=== PATIENT | female | born 1995 | race Caucasian/White ===

== ENCOUNTER 2016-12-09 19:01 | Emergency (ER) | payer SELFPAY ==
[2016-12-09 19:16] VITALS: TEMP 98.2
[2016-12-09] MEDS ORDERED: LACTATED RINGERS 1,000 ML IVS ONE (19:26)
[2016-12-09] MEDS ORDERED: ONDANSETRON INJ 4 MG/2 ML VIAL IV ONE (19:40)
--- NOTE | 2016-12-09 19:54 | ED.PDOC ---
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 Timing/Duration: other - 48 hours Severity: moderate Improving Factors: nothing Worsening Factors: eating Associated Symptoms: other - see HPI Allergies/Adverse Reactions: Allergies NO KNOWN ALLERGY Allergy (Unverified 01/11/12 23:20) Home Medications: Ambulatory Orders NK [NK] 05/12/14 Review of Systems - Review of Systems Gastrointestinal/Abdominal: States: see HPI All other Systems: Reviewed and Negative, No Change from Baseline Past Medical History (General) - Patient Medical History Hx Seizures: No Hx Stroke: No Hx Dementia: No Hx Asthma: No Hx of COPD: No Hx Cardiac Disorders: No Hx Congestive Heart Failure: No Hx Pacemaker: No Hx Hypertension: No Hx Thyroid Disease: No Hx Diabetes: No Hx Gastroesophageal Reflux: No Hx Renal Disease: No Hx Cancer: No Hx of HIV: No Hx Hepatitis C: No Hx MRSA: No Surgical History: tonsillectomy, other - Vaccination History Hx Tetanus, Diphtheria Vaccination: Yes Hx Influenza Vaccination: No Hx Pneumococcal Vaccination: No Immunizations Up to Date: Yes - Social History Hx Tobacco Use: Yes Hx Alcohol Use: No - Female History Patient is a Female of Child Bearing Age (10 -59 yrs old): Yes Patient : No Family Medical History - Family History Mother Family History: Unknown Hx Family Asthma: Yes - copd-mom Hx Family Stroke: Yes Hx Family Diabetes: Yes Hx Family Cancer: Yes Physical Exam - Physical Exam General Appearance: Alert, Comfortable, No apparent distress Eye Exam: bilateral normal Ears, Nose, Throat: hearing grossly normal, normal ENT inspection, normal pharynx Neck: non-tender, supple Respiratory: chest non-tender, lungs clear, normal breath sounds Cardiovascular/Chest: normal peripheral pulses, regular rate, rhythm, no murmur Gastrointestinal/Abdominal: normal bowel sounds, non tender, soft, no organomegaly Back Exam: no vertebral tenderness Extremity: no pedal edema, no calf tenderness Neurologic: alert, normal mood/affect, oriented x 3 Skin Exam: normal color, warm/dry Lymphatic: no adenopathy Progress - Progress Progress: 12/09/16 19:57 Vital Signs - 8 hr 12/09/16 12/09/16 19:11 19:12 Temperature 98.2 F Pulse Rate [ 114 H 114 H left radial] Respiratory 18 18 Rate Blood Pressure 114/81 [Right Arm] O2 Sat by Pulse 98 Oximetry 12/09/16 20:34 Laboratory Tests 12/09/16 12/09/16 12/09/16 19:26 19:26 19:37 WBC 4.3 L RBC 5.12 Hgb 14.9 Hct 42.8 MCV 83.5 MCH 29.1 MCHC 34.8 RDW 13.3 Plt Count 196 MPV 8.0 Absolute Neuts (auto) 2.50 Absolute Lymphs (auto) 1.20 Absolute Monos (auto) 0.50 Absolute Eos (auto) 0.10 Absolute Basos (auto) 0.00 Neutrophils % 56.9 Lymphocytes % 27.7 Monocytes % 12.4 H Eosinophils % 2.4 Basophils % 0.6 Sodium Potassium Chloride Carbon Dioxide Anion Gap BUN Creatinine BUN/Creatinine Ratio Random Glucose Serum Osmolality Calcium Total Bilirubin AST ALT Alkaline Phosphatase Serum Total Protein Albumin Globulin Albumin/Globulin Ratio Lipase Urine Color Urine Appearance Urine pH Ur Specific [place] Urine Protein Urine Glucose (UA) Urine Ketones Urine Blood Urine Nitrite Urine Bilirubin Urine Urobilinogen Ur Leukocyte Esterase Urine RBC Urine WBC Ur Epithelial Cells Amorphous Sediment Urine Bacteria Urine Mucus Urine HCG, Qual Negative Urine Opiates Screen Negative Urine Barbiturates Negative Ur Phencyclidine Scrn Negative U Amphetamin/Meth Scrn Positive H U Benzodiazepines Scrn Negative U Cocaine Metab Screen Negative U Cannabinoids Screen Positive H 12/09/16 12/09/16 12/09/16 19:37 19:37 19:57 WBC RBC Hgb Hct MCV MCH MCHC RDW Plt Count MPV Absolute Neuts (auto) Absolute Lymphs (auto) Absolute Monos (auto) Absolute Eos (auto) Absolute Basos (auto) Neutrophils % Lymphocytes % Monocytes % Eosinophils % Basophils % Sodium 135 Potassium 3.5 L Chloride 102 Carbon Dioxide 28 Anion Gap 8.5 L BUN 7 Creatinine 0.53 L BUN/Creatinine Ratio 13.2 Random Glucose 106 H Serum Osmolality 268.5 L Calcium 8.5 Total Bilirubin 1.2 H AST 18 ALT 15 Alkaline Phosphatase 55 Serum Total Protein 6.9 Albumin 3.7 Globulin 3.2 Albumin/Globulin Ratio 1.2 Lipase 20 L Urine Color Yellow Urine Appearance Clear Urine pH 7.5 Ur Specific [place] 1.020 Urine Protein Negative Urine Glucose (UA) Negative Urine Ketones Negative Urine Blood Negative Urine Nitrite Negative Urine Bilirubin Negative Urine Urobilinogen 1.0 Ur Leukocyte Esterase Trace H Urine RBC 1-3 Urine WBC 3-5 H Ur Epithelial Cells 10-20 Amorphous Sediment 1+ Urine Bacteria 2+ H Urine Mucus Trace Urine HCG, Qual Urine Opiates Screen Urine Barbiturates Ur Phencyclidine Scrn U Amphetamin/Meth Scrn U Benzodiazepines Scrn U Cocaine Metab Screen U Cannabinoids Screen Departure - Departure Clinical Impression: Nausea and vomiting in adult patient Diarrhea Qualifiers: Diarrhea type: unspecified type Qualified Code(s): R19.7 - Diarrhea, unspecified Time of Disposition: 20:47 Disposition: Discharge to Home or Self Care Condition: Good Departure Forms: ED Discharge - Pt. Copy, Patient Portal Self Enrollment Instructions: DI for Diarrhea and Traveler's Diarrhea -- Adult, DI for Vomiting -- Adult, Probiotics May Decrease Intensity and Duration of Diarrhea Due to Infection Diet: bland diet - until better Activity: other - Avoid greasy ,spicy and dairy foods until better Home Medications: Ambulatory Orders NK [NK] 05/12/14 Additional Instructions: Follow up with primary md 12/11/2016
[2016-12-09 21:06] VITALS: BP 99/58; O2SAT 100
== END 2016-12-09 21:05 | disposition home or self-care (01) ==
LOC: ER 19:01
DX: R11.2 Nausea with vomiting, unspecified (principal); R19.7 Diarrhea, unspecified; Z87.891 Personal history of nicotine dependence
CPT/HCPCS: 80053; 80307; 81001; 81025; 83690; 85025; J2405; J7120

== ENCOUNTER 2017-03-13 11:20 | Emergency (ER) | payer SELFPAY ==
[2017-03-13 12:04] VITALS: TEMP 102.1
--- NOTE | 2017-03-13 12:43 | ED.PDOC ---
History of Present Illness - General Chief Complaint: Fever Stated Complaint: Difficulty breathing, cough, bodyaches, fever Time Seen by Provider: 03/13/17 12:36 Source: patient Exam Limitations: no limitations - History of Present Illness Initial Comments: Patricia Garcia y/o female seen in er with body aches,dry cough ,fever since yesterday.No ill contact,no chronic medical problem. Timing/Duration: other - 2 days Severity: moderate Worsening Factors: nothing Associated Symptoms: cough - dry Allergies/Adverse Reactions: Allergies NO KNOWN ALLERGY Allergy (Verified 03/13/17 12:06) Home Medications: Ambulatory Orders Benzonatate Perles [Tessalon Perles] 200 mg PO BID #40 cap 03/13/17 Oseltamivir Capsule [Tamiflu] 75 mg PO BID 5 Days #10 capsule 03/13/17 Review of Systems - Review of Systems Constitutional: States: see HPI, fever EENTM: States: no symptoms reported Respiratory: States: see HPI, cough Gastrointestinal/Abdominal: States: no symptoms reported Genitourinary: States: no symptoms reported Musculoskeletal: States: see HPI, muscle pain Skin: States: no symptoms reported Neurological: States: no symptoms reported All other Systems: Reviewed and Negative, No Change from Baseline Past Medical History (General) - Patient Medical History Hx Seizures: No Hx Stroke: No Hx Dementia: No Hx Asthma: No Hx of COPD: No Hx Cardiac Disorders: No Hx Congestive Heart Failure: No Hx Pacemaker: No Hx Hypertension: No Hx Thyroid Disease: No Hx Diabetes: No Hx Gastroesophageal Reflux: No Hx Renal Disease: No Hx Cancer: No Hx of HIV: No Hx Hepatitis C: No Hx MRSA: No Surgical History: tonsillectomy, other - Vaccination History Hx Tetanus, Diphtheria Vaccination: Yes Hx Influenza Vaccination: No Hx Pneumococcal Vaccination: No - Social History Hx Tobacco Use: Yes Hx Alcohol Use: No - Female History Patient is a Female of Child Bearing Age (10 -59 yrs old): Yes Hx Last Menstrual Period: 02/27/17 Patient : No Family Medical History - Family History Mother Family History: Unknown Hx Family Asthma: Yes - copd-mom Hx Family Stroke: Yes Hx Family Diabetes: Yes Hx Family Cancer: Yes Physical Exam - Physical Exam General Appearance: Alert, Comfortable, No apparent distress Eye Exam: bilateral normal Ears, Nose, Throat: hearing grossly normal, normal ENT inspection, normal pharynx Neck: non-tender, full range of motion, supple Respiratory: chest non-tender, lungs clear, normal breath sounds Cardiovascular/Chest: normal peripheral pulses, regular rate, rhythm, no murmur Peripheral Pulses: radial,right: 2+, radial,left: 2+ Gastrointestinal/Abdominal: normal bowel sounds, non tender, soft, no organomegaly Back Exam: normal inspection, no CVA tenderness, no vertebral tenderness Extremity: non-tender, normal inspection Neurologic: alert, oriented x 3 Skin Exam: normal color, warm/dry Progress - Progress Progress: 03/13/17 12:48 Last Vital Signs Temp 102.1 F H 03/13/17 12:00 Pulse 125 H 03/13/17 12:00 Resp 20 03/13/17 12:00 BP Pulse Ox 100 03/13/17 12:00 - Results/Orders Results/Orders: Flu TEST-positive A Departure - Departure Clinical Impression: Influenza A with respiratory manifestations Time of Disposition: 12:49 Disposition: Discharge to Home or Self Care Condition: Good Departure Forms: ED Discharge - Pt. Copy, Patient Portal Self Enrollment Instructions: Influenza, DI for Influenza -- Adult Diet: other - INCREASE ORAL FLUID INTAKE Prescriptions: Benzonatate Perles [Tessalon Perles] 200 mg PO BID #40 cap Oseltamivir Capsule [Tamiflu] 75 mg PO BID 5 Days #10 capsule Home Medications: Ambulatory Orders Benzonatate Perles [Tessalon Perles] 200 mg PO BID #40 cap 03/13/17 Oseltamivir Capsule [Tamiflu] 75 mg PO BID 5 Days #10 capsule 03/13/17 Additional Instructions: May take Tylenol 500 mg every 6 hours for pain and Aleve 1-2 tablets am/pm for pain;May return to work 03/17/2017 if no fever for 24 hours.
[2017-03-13 13:04] VITALS: BP 130/74; O2SAT 98
== END 2017-03-13 13:02 | disposition home or self-care (01) ==
LOC: ER 11:20
DX: J10.1 Influenza due to other identified influenza virus with other respiratory manifestations (principal); Z87.891 Personal history of nicotine dependence

== ENCOUNTER 2017-03-17 16:52 | Emergency (ER) | payer SELFPAY ==
--- NOTE | 2017-03-17 17:06 | ED.PDOC ---
History of Present Illness - General Chief Complaint: General Stated Complaint: cough/fever Time Seen by Provider: 03/17/17 17:05 Exam Limitations: no limitations - History of Present Illness Comments: Patricia Garcia 21 y/o female with history of flu a was on tamiflu brought back by mom because of fever and cough since the last 5 days no nausea/vomiting.No chronic medical problem. Timing/Duration: constant, other - see hpi Cough Quality/Degree: dry cough Possible Cause: other - had flu Improving Factors: nothing Worsening Factors: nothing Associated Symptoms: cough, fever/chills Respiratory Risk Factors: exposure to illness - flu Allergies/Adverse Reactions: Allergies NO KNOWN ALLERGY Allergy (Verified 03/13/17 12:06) Home Medications: Ambulatory Orders Benzonatate Perles [Tessalon Perles] 200 mg PO BID #40 cap 03/13/17 Oseltamivir Capsule [Tamiflu] 75 mg PO BID 5 Days #10 capsule 03/13/17 Review of Systems - Review of Systems Constitutional: States: see HPI, fever EENTM: States: nose congestion Respiratory: States: see HPI, cough Cardiology: States: no symptoms reported Gastrointestinal/Abdominal: States: no symptoms reported Genitourinary: States: other - dark urine Hematologic/Lymphatic: States: no symptoms reported All other Systems: Reviewed and Negative, No Change from Baseline Past Medical History (General) - Patient Medical History Hx Seizures: No Hx Stroke: No Hx Dementia: No Hx Asthma: No Hx of COPD: No Hx Cardiac Disorders: No Hx Congestive Heart Failure: No Hx Pacemaker: No Hx Hypertension: No Hx Thyroid Disease: No Hx Diabetes: No Hx Gastroesophageal Reflux: No Hx Renal Disease: No Hx Cancer: No Hx of HIV: No Hx Hepatitis C: No Hx MRSA: No Surgical History: tonsillectomy - Vaccination History Hx Tetanus, Diphtheria Vaccination: Yes Hx Influenza Vaccination: No Hx Pneumococcal Vaccination: No - Social History Hx Tobacco Use: Yes Hx Alcohol Use: No Hx Physical Abuse: No Hx Emotional Abuse: No Hx Suspected Abuse: No - Female History Hx Last Menstrual Period: 02/27/17 Patient : No Family Medical History - Family History Mother Family History: Unknown Hx Family Asthma: Yes - copd-mom Hx Family Stroke: Yes Hx Family Diabetes: Yes Hx Family Cancer: Yes Physical Exam - Physical Exam General Appearance: Alert, Comfortable, No apparent distress Eye Exam: bilateral normal ENT Exam: pharynx normal, nasal congestion Neck: full range of motion, supple Respiratory: lungs clear, normal breath sounds, no respiratory distress Cardiovascular/Chest: no edema, no murmur Gastrointestinal/Abdominal: non tender, soft Neurologic: alert, oriented x 3 Skin Exam: normal color, warm/dry - no skin rash Progress - Progress Progress: 03/17/17 17:20 Last Vital Signs Temp 98.5 F 03/17/17 17:08 Pulse 97 H 03/17/17 17:08 Resp 20 03/17/17 17:08 BP 123/66 03/17/17 17:08 Pulse Ox 99 03/17/17 17:08 - Results/Orders Results/Orders: Laboratory Tests 03/17/17 03/17/17 03/17/17 17:23 17:44 17:44 WBC 7.2 RBC 5.22 Hgb 14.8 Hct 43.6 MCV 83.6 MCH 28.4 MCHC 34.0 RDW 13.2 Plt Count 175 MPV 8.9 Absolute Neuts (auto) 4.90 Absolute Lymphs (auto) 1.60 Absolute Monos (auto) 0.60 Absolute Eos (auto) 0.00 Absolute Basos (auto) 0.00 Neutrophils % 67.5 Lymphocytes % 22.9 Monocytes % 8.7 Eosinophils % 0.6 L Basophils % 0.3 Sodium 139 Potassium 3.6 Chloride 102 Carbon Dioxide 25 Anion Gap 15.6 BUN 8 Creatinine 0.58 L BUN/Creatinine Ratio 13.8 Random Glucose 92 Serum Osmolality 275.5 Lactic Acid Calcium 9.0 Total Bilirubin 0.5 AST 23 ALT 18 Alkaline Phosphatase 65 Serum Total Protein 7.7 Albumin 4.0 Globulin 3.7 H Albumin/Globulin Ratio 1.1 Urine Color Yellow Urine Appearance Cloudy Urine pH 8.5 H Ur Specific [place] 1.020 Urine Protein Negative Urine Glucose (UA) Negative Urine Ketones Trace Urine Blood Negative Urine Nitrite Negative Urine Bilirubin Small H Urine Urobilinogen >= 8.0 H Ur Leukocyte Esterase Negative Urine RBC 0 Urine WBC 0 Ur Epithelial Cells 5-10 Amorphous Sediment 4+ Urine Bacteria Rare 03/17/17 17:44 WBC RBC Hgb Hct MCV MCH MCHC RDW Plt Count MPV Absolute Neuts (auto) Absolute Lymphs (auto) Absolute Monos (auto) Absolute Eos (auto) Absolute Basos (auto) Neutrophils % Lymphocytes % Monocytes % Eosinophils % Basophils % Sodium Potassium Chloride Carbon Dioxide Anion Gap BUN Creatinine BUN/Creatinine Ratio Random Glucose Serum Osmolality Lactic Acid 1.2 Calcium Total Bilirubin AST ALT Alkaline Phosphatase Serum Total Protein Albumin Globulin Albumin/Globulin Ratio Urine Color Urine Appearance Urine pH Ur Specific [place] Urine Protein Urine Glucose (UA) Urine Ketones Urine Blood Urine Nitrite Urine Bilirubin Urine Urobilinogen Ur Leukocyte Esterase Urine RBC Urine WBC Ur Epithelial Cells Amorphous Sediment Urine Bacteria - EKG/XRAY/CT XRAY: chest - no acute abnormalities Departure - Departure Clinical Impression: Post-viral cough syndrome, History of influenza Time of Disposition: 18:27 Disposition: Discharge to Home or Self Care Condition: Good Departure Forms: ED Discharge - Pt. Copy, Patient Portal Self Enrollment Instructions: DI for Influenza -- Adult Home Medications: Ambulatory Orders Benzonatate Perles [Tessalon Perles] 200 mg PO BID #40 cap 03/13/17 Oseltamivir Capsule [Tamiflu] 75 mg PO BID 5 Days #10 capsule 03/13/17 Additional Instructions: Continue with Tamiflu as directed;Drink extra fluids;Nasal saline spray as needed for nasal congestion;May take (over the counter ) Mucinex-DM and Benadryl capsule as directed on package insert for cough;Need to off work 03/17- 01/2018
[2017-03-17 17:11] VITALS: BP 123/66; TEMP 98.5; O2SAT 99
[2017-03-17] MEDS ORDERED: SODIUM CHLORIDE 0.9% 500ML 500 ML IVS ONE (17:19)
--- NOTE | 2017-03-17 17:59 | RAD ---
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 No pleural effusion or pneumothorax. Cardiac silhouette is normal in size. Impression: No acute pulmonary process. Electronically signed by: Cong Figueroa MD 03/17/2017 5:58 PM LANGUAGE TUTOR
== END 2017-03-17 18:46 | disposition home or self-care (01) ==
LOC: ER 16:52
DX: R05 Cough (principal); Z87.898 Personal history of other specified conditions
CPT/HCPCS: 36415; 71046; 80053; 81001; 83605; 85025; J7040

== ENCOUNTER 2017-08-29 11:39 | Emergency (ER) | payer SELFPAY ==
[2017-08-29] MEDS ORDERED: CHLORHEXIDINE GLUCONATE 4 % 15 ML UD TOP ONE (11:47)
--- NOTE | 2017-08-29 11:59 | ED.PDOC ---
History of Present Illness - General Chief Complaint: Laceration Stated Complaint: Laceration to R lower leg Time Seen by Provider: 08/29/17 11:57 Source: patient, Vital Signs reviewed Additional Information: LACERATION LEFT LEG OVER THE CALF AFTER A MIRROR SHE WAS CARRYING SHATTERED LACERATION IS CURVED MEASURES 10 CM NO NEURO VASCULAR DEFCIT NO MUSCLE OR TENDON INJURY - History of Present Illness Timing/Duration: 1/2 hour Severity: mild, moderate Improving Factors: nothing Associated Symptoms: denies symptoms Allergies/Adverse Reactions: Allergies NO KNOWN ALLERGY Allergy (Verified 03/13/17 12:06) Home Medications: Ambulatory Orders Acetamin W/Cod #3 Tab [Tylenol w/CODEINE #3] 1 ea PO Q6HR PRN #40 tab 08/29/17 Clindamycin HCl [Cleocin] 300 mg PO Q6H #40 cap 08/29/17 Review of Systems - Review of Systems Constitutional: States: no symptoms reported EENTM: States: no symptoms reported Respiratory: States: no symptoms reported Cardiology: States: no symptoms reported Gastrointestinal/Abdominal: States: no symptoms reported Genitourinary: States: no symptoms reported Skin: States: see HPI Neurological: States: no symptoms reported Endocrine: States: no symptoms reported Hematologic/Lymphatic: States: no symptoms reported Past Medical History (General) - Patient Medical History Hx Seizures: No Hx Stroke: No Hx Dementia: No Hx Asthma: No Hx of COPD: No Hx Cardiac Disorders: No Hx Congestive Heart Failure: No Hx Pacemaker: No Hx Hypertension: No Hx Thyroid Disease: No Hx Diabetes: No Hx Gastroesophageal Reflux: No Hx Renal Disease: No Hx Cancer: No Hx of HIV: No Hx Hepatitis C: No Hx MRSA: No - Vaccination History Hx Tetanus, Diphtheria Vaccination: Yes Hx Influenza Vaccination: No Hx Pneumococcal Vaccination: No - Social History Hx Tobacco Use: Yes Hx Alcohol Use: No Hx Physical Abuse: No Hx Emotional Abuse: No Hx Suspected Abuse: No - Female History Hx Last Menstrual Period: 02/27/17 Patient : No Family Medical History - Family History Mother Family History: Unknown Hx Family Asthma: Yes - copd-mom Hx Family Stroke: Yes Hx Family Diabetes: Yes Hx Family Cancer: Yes Physical Exam - Physical Exam General Appearance: Alert, Anxious Eye Exam: bilateral normal Ears, Nose, Throat: hearing grossly normal, normal ENT inspection, normal pharynx Neck: non-tender, full range of motion, supple Respiratory: chest non-tender, lungs clear, normal breath sounds, no respiratory distress Cardiovascular/Chest: normal peripheral pulses, regular rate, rhythm, no edema, no gallop, no JVD, no murmur Gastrointestinal/Abdominal: normal bowel sounds, non tender, soft, no organomegaly, no pulsatile mass Back Exam: normal inspection, no vertebral tenderness Procedures - Laceration/Wound Repair Left Calf Wound's Depth, Shape: irregular, flap Wound Explored: clean Betadine Prep?: Yes Anesthesia: 1% Lidocaine Volume Anesthetic (cc's): 200 Suture Size/Type: 4:0, 3:0, prolene Layer Closure?: No Sterile Dressing Applied?: Yes Splint Applied?: No Sling Applied?: No Departure - Departure Clinical Impression: Laceration Time of Disposition: 12:17 Disposition: Discharge to Home or Self Care Condition: Good Departure Forms: ED Discharge - Pt. Copy, Patient Portal Self Enrollment Instructions: DI for Laceration Repair Diet: resume usual diet Referrals: Albino Jang MD [Referring] - 1-2 Weeks Prescriptions: Acetamin W/Cod #3 Tab [Tylenol w/CODEINE #3] 1 ea PO Q6HR PRN #40 tab PRN Reason: Mild To Moderate Pain Clindamycin HCl [Cleocin] 300 mg PO Q6H #40 cap Home Medications: Ambulatory Orders Acetamin W/Cod #3 Tab [Tylenol w/CODEINE #3] 1 ea PO Q6HR PRN #40 tab 08/29/17 Clindamycin HCl [Cleocin] 300 mg PO Q6H #40 cap 08/29/17
[2017-08-29 12:00] VITALS: BP 144/80
[2017-08-29 12:54] VITALS: TEMP 98; O2SAT 98
== END 2017-08-29 12:50 | disposition home or self-care (01) ==
LOC: ER 11:39
DX: S81.812A Laceration without foreign body, left lower leg, initial encounter (principal); Z87.891 Personal history of nicotine dependence; W25.XXXA Contact with sharp glass, initial encounter